=== PATIENT | male | born 1985 | race Caucasian/White ===

== ENCOUNTER 2020-11-20 12:12 | Emergency (ER) | payer BC ==
--- NOTE | 2020-11-20 15:24 | RAD REPORT ---
EXAM DESCRIPTION: US - UPPER EXTREMITY VENOUS UNILATE - 11/20/2020 3:01 pm CLINICAL HISTORY: PAIN Leg swelling and edema. COMPARISON: No comparisons FINDINGS: Left upper extremity venous system was interrogated with Doppler technique. Normal flow, c ompressibility and augmentation was noted. There is no DVT present. IMPRESSION: No evidence of left upper extremity deep venous thrombosis.
[2020-11-20 15:40] LABS: Absolute Lymphocytes (CBC) 1.5 K/uL (0.7-4.9); Basophils % 0.7 % (0-1.3); Hematocrit 44.8 % (39.6-49.0); Lymphocytes % 15.2 % (15.3-44.8); MPV 9.7 fL (7.6-11.3); RBC Red Blood Cell Count 5.01 M/uL (4.33-5.43)
[2020-11-20 16:01] LABS: BUN Blood Urea Nitrogen 13 mg/dL (7-18); Bicarbonate 29 mmol/L (21-32); Glucose Level 94 mg/dL (74-106); Potassium 3.6 mmol/L (3.5-5.1); Sodium Level 140 mmol/L (136-145); Troponin (Emerg Dept Use Only) < 0.02 ng/mL (0.0-0.045)
--- NOTE | 2020-11-20 16:11 | EDPHYS ---
Physician Documentation [facility] Name: Trenton Lyn Jr Age: 34 yrs Sex: Male : 1985 Arrival Date: 11/20/2020 Time: 12:18 Bed 15 Private MD: ED Physician Jez Morales HPI: 11/20 15:13 This 34 yrs old Male presents to ER via Ambulatory with complaints of L Arm kb Pain. 15:13 The patient or guardian complains of pain, soreness and cramping. The complaints affect kb the left arm. Context: The problem was sustained at home, resulted from unknown cause. Onset: The symptoms/episode began/occurred 3 day(s) ago. Treatment prior to arrival includes: no previous treatment. Modifying factors: The symptoms are alleviated by nothing. the symptoms are aggravated by. Associated signs and symptoms: Pertinent positives: pain, Pertinent negatives: decreased range of motion, erythema, fever, swelling. Severity of symptoms: At their worst the symptoms were mild, moderate, in the emergency department the symptoms are unchanged. The patient has not experienced similar symptoms in the past. The patient has not recently seen a physician. Historical: - Allergies: 12:53 No Known Allergies; ss - Home Meds: 12:53 None [Active]; ss - PMHx: 12:53 None; ss - PSHx: 12:53 Appendectomy; ss - Immunization history:: Adult Immunizations unknown. - Social history:: Smoking status: Patient denies any tobacco usage or history of. ROS: 15:09 Constitutional: Negative for fever, chills, and weight loss, Cardiovascular: Negative kb for chest pain, palpitations, and edema, Respiratory: Negative for shortness of breath, cough, wheezing, and pleuritic chest pain, Abdomen/GI: Negative for abdominal pain, nausea, vomiting, diarrhea, and constipation, Skin: Negative for injury, rash, and discoloration, Neuro: Negative for headache, weakness, numbness, tingling, and seizure. 15:09 MS/extremity: Positive for pain, of the left arm. Exam: 15:09 Constitutional: This is a well developed, well nourished patient who is awake, alert, kb and in no acute distress. Head/Face: Normocephalic, atraumatic. Chest/axilla: Normal chest wall appearance and motion. Cardiovascular: Regular rate and rhythm with a normal S1 and S2. No gallops, murmurs, or rubs. No pulse deficits. Respiratory: Respirations even and unlabored. No increased work of breathing, no retractions or nasal flaring. Abdomen/GI: Soft, non-tender. No distention Skin: Warm, dry with normal turgor. Normal color. MS/ Extremity: Pulses equal, no cyanosis. Neurovascular intact. Full, normal range of motion. Neuro: Awake and alert, GCS 15, oriented to person, place, time, and situation. Moves all extremities. Normal gait. 15:09 ECG was reviewed by the Attending Physician. kb Vital Signs: 12:50 Pulse 101; Resp 16; Temp 98.9(O); Pulse Ox 98% on R/A; Height 5 ft. 9 in. (175.26 cm); ss Pain 2/10; 12:50 BP 171 / 126; ss 13:06 BP 152 / 109; Pulse 86; ss 16:30 BP 153 / 115; Pulse 76; Resp 17; Pulse Ox 98% on R/A; ll1 16:30 Still cleared for discharge. Follow-up with PCP regarding elevated BP. ll1 MDM: 14:06 Patient medically screened. kb 15:10 Data reviewed: vital signs, nurses notes. Data interpreted: Pulse oximetry: on room air kb is 98 %. Interpretation: normal. 15:15 Counseling: I had a detailed discussion with the patient and/or guardian regarding: the kb historical points, exam findings, and any diagnostic results supporting the discharge/admit diagnosis, lab results, radiology results, the need for outpatient follow up, a family practitioner, to return to the emergency department if symptoms worsen or persist or if there are any questions or concerns that arise at home. 11/20 14:33 Order name: Basic Metabolic Panel; Complete Time: 16:03 kb 11/20 14:33 Order name: CBC with Diff; Complete Time: 15:42 kb 11/20 14:33 Order name: Troponin (emerg Dept Use Only); Complete Time: 16:03 kb 11/20 14:33 Order name: EKG; Complete Time: 14:34 kb 11/20 14:43 Order name: UPPER EXTREMITY VENOUS UNILATE; Complete Time: 15:39 EDMS 11/20 14:33 Order name: EKG - Nurse/Tech; Complete Time: 15:18 kb EC:09 Rate is 93 beats/min. Rhythm is regular. QRS [place] is Normal. CO interval is normal at kb 150 msec. QRS interval is normal at 90 msec. QT interval is normal at 346 msec. Administered Medications: No medications were administered Disposition: 11/21 07:30 Co-signature as Attending Physician, Jez Morales MD I agree with the assessment and angel plan of care. Disposition: 11/20/20 16:10 Discharged to Home. Impression: Pain in left arm. - Condition is Stable. - Discharge Instructions: Musculoskeletal Pain. - Prescriptions for Cyclobenzaprine 10 mg Oral Tablet - take 1 tablet by ORAL route every 8 hours As needed; 21 tablet. Diclofenac Sodium 75 mg Oral Tablet, Delayed Release (E.C.) - take 1 tablet by ORAL route 2 times per day As needed; 30 tablet. - Medication Reconciliation Form, Thank You Letter, Antibiotic Education, Prescription Opioid Use, Work release form form. - Follow up: Emergency Department; When: As needed; Reason: Worsening of condition. Follow up: Private Physician; When: 2 - 3 days; Reason: Recheck today's complaints, Continuance of care, Re-evaluation by your physician. Signatures: Dispatcher [employer] [facility] Yaneli Vaughn, BRICK OR BLOCK MAKER-C BRICK OR BLOCK MAKER-Jez Spivey MD MD cha Smirch, Shelby, RN RN ss Chelle Caban RN RN ll1 Corrections: (The following items were deleted from the chart) 11/20 14:43 14:34 Extremity Venous Uni [email or web address] ordered. [facility] 16:32 16:10 11/20/2020 16:10 Discharged to Home. Impression: Pain in left arm. Condition is ll1 Stable. Forms are Medication Reconciliation Form, Thank You Letter, Antibiotic Education, Prescription Opioid Use. Follow up: Emergency Department; When: As needed; Reason: Worsening of condition. Follow up: Private Physician; When: 2 - 3 days; Reason: Recheck today's complaints, Continuance of care, Re-evaluation by your physician. kb
--- NOTE | 2020-11-20 16:11 | ER ---
Nurse's Notes [facility] Name: Trenton Lyn Jr Age: 34 yrs Sex: Male : 1985 Arrival Date: 11/20/2020 Time: 12:18 Bed 15 Private MD: Diagnosis: Pain in left arm Presentation: 11/20 12:50 Chief complaint: Patient states: L arm aching/ cramping that began a couple days ago. ss No known injury. Coronavirus screen: Client denies travel out of the [place] in the last 14 days. Ebola Screen: Patient denies exposure to infectious person. Patient denies travel to an Ebola-affected area in the 21 days before illness onset. Initial Sepsis Screen: Does the patient meet any 2 criteria? No. Patient's initial sepsis screen is negative. Does the patient have a suspected source of infection? No. Patient's initial sepsis screen is negative. Risk Assessment: Do you want to hurt yourself or someone else? Patient reports no desire to harm self or others. Onset of symptoms was November 17, 2020. 12:50 Method Of Arrival: Ambulatory ss 12:50 Acuity: BENY 3 ss Historical: - Allergies: 12:53 No Known Allergies; ss - Home Meds: 12:53 None [Active]; ss - PMHx: 12:53 None; ss - PSHx: 12:53 Appendectomy; ss - Immunization history:: Adult Immunizations unknown. - Social history:: Smoking status: Patient denies any tobacco usage or history of. Screenin:29 Abuse screen: Denies threats or abuse. Nutritional screening: No deficits noted. ll1 Tuberculosis screening: No symptoms or risk factors identified. Fall Risk IV access (20 points). Total Patel Fall Scale indicates No Risk (0-24 pts). Assessment: 14:50 General: Appears in no apparent distress. Behavior is calm, cooperative, appropriate ll1 for age. Pain: Complains of pain in left arm Quality of pain is described as aching. Neuro: No deficits noted. Cardiovascular: No deficits noted. Respiratory: No deficits noted. Musculoskeletal: Circulation, motion, and sensation intact. Capillary refill < 3 seconds, Range of motion: intact in all extremities, Reports pain in left arm. Vital Signs: 12:50 Pulse 101; Resp 16; Temp 98.9(O); Pulse Ox 98% on R/A; Height 5 ft. 9 in. (175.26 cm); ss Pain 2/10; 12:50 BP 171 / 126; ss 13:06 BP 152 / 109; Pulse 86; ss 16:30 BP 153 / 115; Pulse 76; Resp 17; Pulse Ox 98% on R/A; ll1 16:30 Still cleared for discharge. Follow-up with PCP regarding elevated BP. ll1 ED Course: 12:18 Patient arrived in ED. ds1 12:52 Triage completed. ss 12:53 Arm band placed on right wrist. ss 14:05 Yaneli Vaughn FNP-C is [facility]. kb 14:05 Jez Morales MD is Attending Physician. kb 14:49 Chelle Caban, RN is Primary Nurse. ll1 15:01 UPPER EXTREMITY VENOUS UNILATE In Process Unspecified. EDMS 15:18 EKG done, by ED staff, reviewed by Yaneli ESCOBAR. jp3 15:28 Inserted saline lock: 22 gauge in left antecubital area, using aseptic technique. Blood ll1 collected. 16:29 No provider procedures requiring assistance completed. IV discontinued, intact, ll1 bleeding controlled, No redness/swelling at site. Pressure dressing applied. 16:30 Patient has correct armband on for positive identification. Bed in low position. Call ll1 light in reach. Side rails up X 1. Pulse ox on. NIBP on. Administered Medications: No medications were administered Outcome: 16:10 Discharge ordered by MD. kb 16:30 Discharged to home ambulatory. ll1 16:30 Condition: stable 16:30 Discharge instructions given to patient, Instructed on discharge instructions, follow up and referral plans. medication usage, Demonstrated understanding of instructions, follow-up care, medications, Prescriptions given X 2. 16:32 Patient left the ED. ll1 Signatures: Dispatcher [employer] EDMS Yaneli Vaughn FNP-C FNP-Ckb [place], Demi ds1 Diana Can, NICCI RN Delio Murillo jp3 Chelle Caban, NICCI RN ll1
[2020-11-20 19:19] VITALS: TEMP 98.9; O2SAT 98
[2020-11-20 19:21] VITALS: BP 153/115
--- NOTE | 2020-11-21 10:17 | EKG ---
Test Date: 2020-11-20 Test Time: 15:05:57 Composing Room Machinist Apprentice: YOAN MEASUREMENT RESULTS: Intervals: Rate: 93 IA: 150 QRSD: 90 QT: 346 QTc: 430 [place]: P: 41 IA: 150 QRS: 53 T: 13 INTERPRETIVE STATEMENTS: Normal sinus rhythm Normal ECG No previous ECG available for comparison Electronically Signed On 11-21-20 10:15:24 CDT by Charles Bruno
== END 2020-11-20 16:32 | disposition home or self-care (01) ==
LOC: ER 12:12
DX: M79.602 Pain in left arm (principal)
CPT/HCPCS: 36415; 80048; 84484; 85025; 93005; 93971; 99284